=== PATIENT | male | born 1960 | race Caucasian/White ===

== ENCOUNTER 2021-04-23 09:31 | Outpatient (CLI) | payer OTHER ==
[2021-04-23 21:15] LABS: SARS-CoV-2 PCR by NAA Not Detected (NotDetected)
== END 2021-04-23 09:32 | disposition home or self-care (01) ==
LOC: LABBT 09:31
PROVIDERS: ATTEND Internal Medicine
DX: Z01.812 Encounter for preprocedural laboratory examination (principal); Z20.822 Contact with and (suspected) exposure to COVID-19
CPT/HCPCS: U0003; U0005

== ENCOUNTER 2021-04-28 06:39 | Day surgery (SDC) | payer OTHER ==
[2021-04-27 09:39] VITALS: BMI 33.5
[2021-04-28] MEDS ORDERED: Lidocaine 1% PF 5 ML VIAL ONE (08:16)
[2021-04-28] MEDS ORDERED: PROPOFOL 200 MG/20 ML VIAL ONE (08:16)
== END 2021-04-28 09:23 | disposition home or self-care (01) ==
LOC: SDC 06:39
PROVIDERS: ATTEND Internal Medicine
PROC: 0DB48ZX Excision of Esophagogastric Junction, Via Natural or Artificial Opening Endoscopic, Diagnostic (ICD-10-PCS; principal; 2021-04-28)
PROC: 0DB78ZX Excision of Stomach, Pylorus, Via Natural or Artificial Opening Endoscopic, Diagnostic (ICD-10-PCS; principal; 2021-04-28)
DX: K31.89 Other diseases of stomach and duodenum (principal); K20.90 Esophagitis, unspecified without bleeding; M19.90 Unspecified osteoarthritis, unspecified site; M48.02 Spinal stenosis, cervical region; F17.210 Nicotine dependence, cigarettes, uncomplicated; Z79.899 Other long term (current) drug therapy; Z90.49 Acquired absence of other specified parts of digestive tract; Z98.890 Other specified postprocedural states
CPT/HCPCS: 88305; 88312; J2704

== ENCOUNTER 2024-09-06 14:52 | Outpatient (CLI) | payer OTHER | END 2024-09-06 14:53 | disposition home or self-care (01) | LOC: SCSRAD 14:52 | PROVIDERS: ATTEND Family Medicine | DX: S89.91XA Unspecified injury of right lower leg, initial encounter (principal); S89.92XA Unspecified injury of left lower leg, initial encounter; M54.41 Lumbago with sciatica, right side; M25.78 Osteophyte, vertebrae | CPT/HCPCS: 72100 ==